=== PATIENT | male | born 1985 | race African-American/Black ===

== ENCOUNTER 2018-11-26 10:55 | Emergency (ER) | payer MEDICAID ==
[~2018-11-26] VITALS: Ht 172.7 cm; Wt 99.0 kg
[2018-11-26 10:56] VITALS: BP 129/79
--- NOTE | 2018-11-26 12:55 | REP ---
Clinical: Bilateral knee pain Technique: AP, lateral, bilateral oblique and sunrise views right and left knee. Findings: The osseous structures and joint spaces are intact and normal. There is no evidence for acute fracture or dislocation. No joint effusion is appreciated. Surrounding soft tissues are unremarkable. No subcutaneous emphysema or radiodense foreign body. Impression: Normal bilateral knee examination. Electronically Signed by Rodolfo Chadwick MD 11/26/2018 12:48 P
== END 2018-11-26 14:17 | disposition left against medical advice (07) ==
LOC: M ED 10:55
DX: M25.561 Pain in right knee (principal); M25.562 Pain in left knee; F17.210 Nicotine dependence, cigarettes, uncomplicated; F14.20 Cocaine dependence, uncomplicated

== ENCOUNTER 2019-05-28 12:30 | Emergency (ER) | payer MEDICAID, SELFPAY ==
[~2019-05-28] VITALS: Ht 172.7 cm; Wt 63.6 kg
[2019-05-28] MEDS ORDERED: KETOROLAC 30 MG/ML VIAL (J1885) IV ONE (12:45)
[2019-05-28] MEDS ORDERED: METOCLOPRAMIDE INJ 10MG/2ML VIAL (J2765) IV ONE (12:45)
[2019-05-28] MEDS ORDERED: NS 1,000 ML IV ONE (12:45)
[2019-05-28 13:28] LABS: HEMATOCRIT 42.1 % (42.0-52.0); MEAN CORPUSCULAR HEMOGLOBIN 27.9 pg (27.0-33.0); MEAN CORPUSCULAR HGB CONC 33.3 g/dl (32.0-36.5); MEAN CORPUSCULAR VOLUME 83.9 fl (80.0-96.0); PLATELET COUNT, AUTOMATED 257 10^3/uL (150-450); RED BLOOD COUNT 5.02 10^6/uL (4.30-6.10); WHITE BLOOD COUNT 9.1 10^3/uL (4.0-10.0)
[2019-05-28 14:04] LABS: ACETAMINOPHEN LEVEL < 2.0 UG/ML (10.0-30.0); ALBUMIN 3.9 GM/DL (3.2-5.2); ALT/SGPT 16 U/L (12-78); BILIRUBIN,DIRECT < 0.1 MG/DL (0.0-0.2); BILIRUBIN,TOTAL 0.3 MG/DL (0.2-1.0); BLOOD UREA NITROGEN 14 MG/DL (7-18); CALCIUM LEVEL 8.7 MG/DL (8.5-10.1); CARBON DIOXIDE LEVEL 27 MEQ/L (21-32); CHLORIDE LEVEL 109 MEQ/L (98-107); CPK CREATINE PHOSPHOKINASE 158 U/L (39-308); CREATININE FOR GFR 1.03 MG/DL (0.70-1.30); ETHYL ALCOHOL (ETHANOL) < 0.003 % (0.000-0.010); GLOMERULAR FILTRATION RATE > 60.0 (>60); GLUCOSE, FASTING 88 MG/DL (70-100); POTASSIUM SERUM 4.2 MEQ/L (3.5-5.1); SALICYLATE LEVEL 2.8 MG/DL (5.0-30.0); SODIUM LEVEL 142 MEQ/L (136-145); TOTAL PROTEIN 7.3 GM/DL (6.4-8.2)
[2019-05-28 14:30] LABS: AMPHETAMINES LEVEL URINE NEGATIVE (NEGATIVE); BARBITURATES URINE NEGATIVE (NEGATIVE); BENZODIAZEPINES URINE NEGATIVE (NEGATIVE); CANNABINOIDS URINE POSITIVE (NEGATIVE); COCAINE METABOLITE URINE POSITIVE (NEGATIVE); METHADONE URINE NEGATIVE (NEGATIVE); OPIATES URINE NEGATIVE (NEGATIVE); PHENCYCLIDINE URINE NEGATIVE (NEGATIVE)
[2019-05-28 15:24] VITALS: BP 123/57
--- NOTE | 2019-05-28 16:49 | ECGEPIP ---
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
== END 2019-05-28 15:26 | disposition home or self-care (01) ==
LOC: M ED 12:30
DX: F19.10 Other psychoactive substance abuse, uncomplicated (principal); R51 Headache
CPT/HCPCS: 80048; 80076; 80307; 82550; 84443; 85027; 93005; 96374; 96375; 99284; G0480; J1885; J2765

== ENCOUNTER 2020-05-21 11:15 | Emergency (ER) | payer OTHER, SELFPAY ==
[~2020-05-21] VITALS: Ht 170.2 cm; Wt 74.8 kg
[2020-05-21] MEDS ORDERED: NS 1,000 ML IV ONE (11:30)
--- NOTE | 2020-05-21 12:05 | REP ---
Portable chest x-ray: Single view. History: Drug overdose. No comparison study. Findings: The lungs are well inflated and clear. Pleural angles are sharp. Heart size is normal. Pulmonary vasculature is not increased. EKG electrodes are seen. Impression: Negative portable chest x-ray. Electronically Signed by Doyle Ramírez MD 05/21/2020 11:57 A
[2020-05-21 12:42] LABS: BASO # 0.1 10^3/uL (0.0-0.2); BASO % 0.8 % (0.0-1.0); EOS # 0.2 10^3/uL (0.0-0.5); EOS % 2.8 % (0.0-3.0); HEMATOCRIT 41.3 % (42.0-52.0); HEMOGLOBIN 13.4 g/dl (13.5-17.5); LYMPH # 2.2 10^3/uL (1.5-5.0); LYMPH % 27.4 % (24.0-44.0); MEAN CORPUSCULAR HEMOGLOBIN 26.8 pg (27.0-33.0); MEAN CORPUSCULAR HGB CONC 32.4 g/dl (32.0-36.5); MEAN CORPUSCULAR VOLUME 82.6 fl (80.0-96.0); MONO % 13.1 % (0.0-5.0); NEUTROPHILS # 4.4 10^3/uL (1.5-8.5); NEUTROPHILS % 55.6 % (36.0-66.0); PLATELET COUNT, AUTOMATED 286 10^3/uL (150-450); WHITE BLOOD COUNT 7.9 10^3/uL (4.0-10.0)
[2020-05-21 13:02] LABS: ACETAMINOPHEN LEVEL < 2.0 UG/ML (10.0-30.0); ALBUMIN 3.8 GM/DL (3.2-5.2); ALT/SGPT 17 U/L (12-78); BILIRUBIN,DIRECT 0.1 MG/DL (0.0-0.2); BILIRUBIN,TOTAL 0.5 MG/DL (0.2-1.0); BLOOD UREA NITROGEN 20 MG/DL (7-18); CALCIUM LEVEL 8.9 MG/DL (8.5-10.1); CARBON DIOXIDE LEVEL 27 MEQ/L (21-32); CHLORIDE LEVEL 108 MEQ/L (98-107); CPK CREATINE PHOSPHOKINASE 398 U/L (39-308); CREATININE FOR GFR 1.19 MG/DL (0.70-1.30); ETHYL ALCOHOL (ETHANOL) < 0.003 % (0.000-0.010); GLOMERULAR FILTRATION RATE > 60.0 (>60); GLUCOSE, FASTING 72 MG/DL (70-100); POTASSIUM SERUM 3.8 MEQ/L (3.5-5.1); SALICYLATE LEVEL 2.8 MG/DL (5.0-30.0); SODIUM LEVEL 142 MEQ/L (136-145); THYROID STIMULATING HORMONE 0.526 uIU/ML (0.358-3.740); TOTAL PROTEIN 7.3 GM/DL (6.4-8.2)
[2020-05-21 14:01] VITALS: BP 144/66
--- NOTE | 2020-05-21 16:35 | ECGEPIP ---
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
== END 2020-05-21 14:35 | disposition home or self-care (01) ==
LOC: M ED 11:15 → EDBD 11:15 → M ED 14:35
DX: T43.641A Poisoning by ecstasy, accidental (unintentional), initial encounter (principal); Y92.9 Unspecified place or not applicable; Y93.9 Activity, unspecified; Y99.9 Unspecified external cause status; F19.10 Other psychoactive substance abuse, uncomplicated; F17.200 Nicotine dependence, unspecified, uncomplicated
CPT/HCPCS: 36415; 71045; 80048; 80076; 82550; 83605; 84443; 85025; 93005; 93041; 94760; 96360; 99285; G0480

== ENCOUNTER 2020-11-10 17:20 | Emergency (ER) | payer OTHER ==
[~2020-11-10] VITALS: Ht 170.2 cm; Wt 72.8 kg
--- NOTE | 2020-11-10 18:40 | REPVR ---
PROCEDURE INFORMATION: Exam: CT Abdomen And Pelvis Without Contrast Exam date and time: 11/10/2020 6:23 PM Age: 35 years old Clinical indication: Abdominal pain; Flank; Right; Additional info: R flank pain, pain at end of urination TECHNIQUE: Imaging protocol: Computed tomography of the abdomen and pelvis without contrast. Radiation optimization: All CT scans at this facility use at least one of these dose optimization techniques: automated exposure control; mA and/or kV adjustment per patient size (includes targeted exams where dose is matched to clinical indication); or iterative reconstruction. COMPARISON: No relevant prior studies available. FINDINGS: Lungs: No suspicious mass or airspace process in the visualized lung bases. Liver: Noncontrast liver shows no obvious lesion. Gallbladder and bile ducts: Gallbladder is present and shows no evidence of gallstone. Pancreas: Noncontrast pancreas shows no obvious mass or adjacent fluid. Spleen: Noncontrast spleen shows no obvious focal deformity. Adrenal glands: Adrenal glands are normal in appearance. Kidneys and ureters: Kidneys show no stone or hydronephrosis. Stomach and bowel: No evidence of small bowel obstruction. Prominent right-sided colonic stool suggesting perhaps an element of constipation. Appendix: Normal caliber appendix is identified, with no adjacent inflammation. Intraperitoneal space: No pneumoperitoneum. Vasculature: No aortic aneurysm. Lymph nodes: No enlarged lymph nodes. Urinary bladder: Urinary bladder appears normal. Reproductive: No overt enlargement of the prostate gland. Bones/joints: Bony structures show no acute fracture or destructive process. Soft tissues: No concerning focal abnormality of the extra-abdominal and pelvic soft tissues. Other findings: Limited evaluation without enteric or IV contrast. IMPRESSION: 1. No evidence of renal stone or obstruction and no evidence of bladder stone. 2. Prominent colonic stool suggesting perhaps an element of mild constipation. 3. No evidence of acute appendicitis Electronically signed by: Han Edwards On 11/10/2020 18:40:28 PM
[2020-11-10] MEDS ORDERED: KEFL500C17 PO (19:13)
[2020-11-10] MEDS ORDERED: cefTRIAXone SOD 250MG VIAL (J0696 PER 250MG) IM ONE (19:15)
[2020-11-10] MEDS ORDERED: AZITHROMYCIN 250MG TABLET PO ONE (19:15)
[2020-11-10] MEDS ORDERED: LIDOCAINE 1% SDV 5ML VIAL DILUENT ONE (19:15)
[2020-11-10 19:55] VITALS: BP 135/75
[2020-11-10 20:25] LABS: CHLAMYDIA DNA AMPLIFICATION NEGATIVE (NEGATIVE); GC DNA AMPLIFICATION NEGATIVE (NEGATIVE)
== END 2020-11-10 20:10 | disposition home or self-care (01) ==
LOC: M ED 17:20
DX: N39.0 Urinary tract infection, site not specified (principal); R31.9 Hematuria, unspecified; F17.200 Nicotine dependence, unspecified, uncomplicated
CPT/HCPCS: 74176; 81001; 87088; 87186; 87661; 96372; 99283; J0696

== ENCOUNTER 2021-04-25 06:19 | Emergency (ER) | payer OTHER ==
[~2021-04-25] VITALS: Ht 172.7 cm; Wt 65.7 kg
[~2021-04-25 06:19] MED LIST: KEFL500C17 PO
[2021-04-25 06:20] VITALS: BP 133/94
== END 2021-04-25 06:58 | disposition left against medical advice (07) ==
LOC: M ED 06:19
DX: Z53.21 Procedure and treatment not carried out due to patient leaving prior to being seen by health care provider (principal)

== ENCOUNTER 2023-05-20 15:46 | Emergency (ER) | payer OTHER ==
[~2023-05-20] VITALS: Ht 154.9 cm; Wt 69.2 kg
[2023-05-20 18:04] VITALS: BP 136/93; TEMP 99.6; O2SAT 100
== END 2023-05-20 19:56 | disposition left against medical advice (07) ==
LOC: M ED 15:46
DX: Z53.21 Procedure and treatment not carried out due to patient leaving prior to being seen by health care provider (principal)

== ENCOUNTER 2023-11-10 22:54 | Emergency (ER) | payer OTHER ==
[~2023-11-10] VITALS: Ht 172.7 cm; Wt 80.9 kg
[2023-11-11 06:15] VITALS: BP 162/99; TEMP 98.7; O2SAT 100
[2023-11-11] MEDS ORDERED: LIDOCAINE 5% (LIDODERM) PATCH TD ONE (06:15)
[2023-11-11] MEDS ORDERED: NAPROXEN 250 MG TAB PO ONE (06:15)
[2023-11-11 07:21] LABS: BASO # 0.1 10^3/uL (0.0-0.2); EOS # 0.4 10^3/uL (0.0-0.5); HEMATOCRIT 45.5 % (42.0-52.0); HEMOGLOBIN 14.8 g/dl (13.5-17.5); LYMPH # 2.4 10^3/uL (1.5-5.0); LYMPH % 40.8 % (24.0-44.0); MEAN CORPUSCULAR HEMOGLOBIN 26.6 pg (27.0-33.0); MEAN CORPUSCULAR HGB CONC 32.5 g/dl (32.0-36.5); MEAN CORPUSCULAR VOLUME 81.7 fl (80.0-96.0); MONO # 0.6 10^3/uL (0.0-0.8); MONO % 10.5 % (2.0-8.0); NEUTROPHILS # 2.4 10^3/uL (1.5-8.5); NEUTROPHILS % 41.4 % (36.0-66.0); PLATELET COUNT, AUTOMATED 273 10^3/uL (150-450); RED BLOOD COUNT 5.57 10^6/uL (4.30-6.10); WHITE BLOOD COUNT 5.8 10^3/uL (4.0-10.0)
[2023-11-11 07:46] LABS: C REACTIVE PROTEIN QUANTITATIV < 0.40 MG/DL (<1.0)
[2023-11-11 07:48] LABS: ALBUMIN 4.1 G/DL (3.2-5.2); ALKALINE PHOSPHATASE 46 U/L (46-116); ALT/SGPT 16 U/L (7.0-40); AST/SGOT 17 U/L (<34); BILIRUBIN,DIRECT 0.2 MG/DL (<0.4); BILIRUBIN,TOTAL 0.5 MG/DL (0.3-1.2); TOTAL PROTEIN 7.6 G/DL (5.7-8.2)
[2023-11-11] MEDS ORDERED: ACET325C5 PO (07:54)
[2023-11-11] MEDS ORDERED: LIDO5DIS41 TOP (07:54)
[2023-11-11] MEDS ORDERED: IBUP1TAB6 PO (07:54)
== END 2023-11-11 08:00 | disposition home or self-care (01) ==
LOC: M ED 22:54
DX: M79.10 Myalgia, unspecified site (principal); F17.200 Nicotine dependence, unspecified, uncomplicated; Z79.1 Long term (current) use of non-steroidal anti-inflammatories (NSAID); Z79.891 Long term (current) use of opiate analgesic

== ENCOUNTER 2024-08-05 10:49 | Emergency (ER) | payer OTHER ==
[~2024-08-05] VITALS: Ht 170.2 cm; Wt 74.2 kg
[~2024-08-05 10:49] MED LIST changes: +ACET325C5 PO; +IBUP1TAB6 PO; +LIDO5DIS41 TOP
[2024-08-05] MEDS: ACETAMINOPHEN TAB 650MG DOSE (2X325MG) PO ONE (13:03)
[2024-08-05 15:11] LABS: BASO # 0.1 10^3/uL (0.0-0.2); BASO % 0.3 % (0.0-1.0); EOS # 0.3 10^3/uL (0.0-0.5); EOS % 1.7 % (0.0-3.0); HEMATOCRIT 38.6 % (42.0-52.0); HEMOGLOBIN 12.6 g/dl (13.5-17.5); LYMPH # 2.3 10^3/uL (1.5-5.0); LYMPH % 15.8 % (24.0-44.0); MEAN CORPUSCULAR HEMOGLOBIN 26.6 pg (27.0-33.0); MEAN CORPUSCULAR HGB CONC 32.6 g/dl (32.0-36.5); MEAN CORPUSCULAR VOLUME 81.4 fl (80.0-96.0); MONO # 1.3 10^3/uL (0.0-0.8); MONO % 8.8 % (2.0-8.0); NEUTROPHILS # 10.5 10^3/uL (1.5-8.5); PLATELET COUNT, AUTOMATED 262 10^3/uL (150-450); RED BLOOD COUNT 4.74 10^6/uL (4.30-6.10); WHITE BLOOD COUNT 14.4 10^3/uL (4.0-10.0)
[2024-08-05 15:15] LABS: ERYTHROCYTE SEDIMENTATION RATE 72 mm/hr (0-15)
[2024-08-05 15:37] LABS: ALBUMIN 3.4 G/DL (3.2-5.2); ALKALINE PHOSPHATASE 75 U/L (46-116); ALT/SGPT 11 U/L (7.0-40); AST/SGOT 8 U/L (<34); BILIRUBIN,DIRECT 0.2 MG/DL (<0.4); BILIRUBIN,TOTAL 0.5 MG/DL (0.3-1.2); BLOOD UREA NITROGEN 10 MG/DL (9-23); CALCIUM LEVEL 9.3 MG/DL (8.5-10.1); CARBON DIOXIDE LEVEL 28 MMOL/L (20-31); CHLORIDE LEVEL 105 MMOL/L (98-107); CREATININE FOR GFR 0.91 MG/DL (0.70-1.30); GLOMERULAR FILTRATION RATE > 60.0 (>60); GLUCOSE, FASTING 84 MG/DL (60-100); POTASSIUM SERUM 3.3 MMOL/L (3.5-5.1); SODIUM LEVEL 139 MMOL/L (136-145); TOTAL PROTEIN 7.2 G/DL (5.7-8.2)
[2024-08-05] MEDS: DALBAVANCIN 1,500 MG in D5W 250 ML IV ONE (16:37)
[2024-08-05] MEDS ORDERED: BACT800T5 PO (16:56)
[2024-08-05 17:37] VITALS: BP 165/60; TEMP 98.4; O2SAT 100
== END 2024-08-05 18:19 | disposition home or self-care (01) ==
LOC: M ED 10:49
DX: L03.116 Cellulitis of left lower limb (principal); F12.10 Cannabis abuse, uncomplicated
CPT/HCPCS: 76882; 80048; 80076; 85025; 85652; 86140; 87040; 93971; 96361; 96365; 96366; 96374; 99284; J0875

== ENCOUNTER 2024-08-21 20:37 | Emergency (ER) | payer OTHER ==
[~2024-08-21] VITALS: Ht 172.7 cm; Wt 71.5 kg
[~2024-08-21 20:37] MED LIST changes: +BACT800T5 PO
[2024-08-21 20:49] VITALS: BP 181/102; TEMP 97.8; O2SAT 98
== END 2024-08-22 01:15 | disposition left against medical advice (07) ==
LOC: M ED 20:37
DX: Z53.21 Procedure and treatment not carried out due to patient leaving prior to being seen by health care provider (principal)

== ENCOUNTER 2024-12-28 13:43 | Emergency (ER) | payer OTHER ==
[~2024-12-28] VITALS: Ht 170.2 cm; Wt 73.2 kg
[2024-12-28 13:47] VITALS: BP 154/85; TEMP 97.4; O2SAT 98
== END 2024-12-28 14:51 | disposition left against medical advice (07) ==
LOC: M ED 13:43
DX: Z53.21 Procedure and treatment not carried out due to patient leaving prior to being seen by health care provider (principal)